=== PATIENT | male | born 1955 | race Caucasian/White ===

== ENCOUNTER 2018-11-09 12:32 | Emergency (ER) | payer OTHER ==
[~2018-11-09] VITALS: Ht 177.8 cm; Wt 77.1 kg
[2018-11-09 12:37] VITALS: BP 119/74
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
[2018-11-09] MEDS ORDERED: VOLTAREN100 G1 TP (13:01)
[2018-11-09] MEDS ORDERED: ZITHROMAX250 MG ORAL (13:01)
[2018-11-09] MEDS ORDERED: TESSALON PERLE100 MG ORAL (13:01)
[2018-11-09 13:12] VITALS: BP 119/74
== END 2018-11-09 13:00 | disposition home or self-care (01) ==
LOC: EMR 12:49
DX: J02.0 Streptococcal pharyngitis (principal); M25.512 Pain in left shoulder; G89.29 Other chronic pain; M25.542 Pain in joints of left hand; F17.200 Nicotine dependence, unspecified, uncomplicated
CPT/HCPCS: 99282

== ENCOUNTER 2019-11-27 14:41 | Emergency (ER) | payer MEDICAID, OTHER ==
[~2019-11-27] VITALS: Ht 177.8 cm; Wt 70.3 kg
[~2019-11-27 14:41] MED LIST: TESSALON PERLE100 MG ORAL; VOLTAREN100 G1 TP; ZITHROMAX250 MG ORAL
[2019-11-27 14:59] VITALS: BP 114/76
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
[2019-11-27] MEDS ORDERED: TYLENOL EXTRA500 MG ORAL (17:23)
[2019-11-27] MEDS ORDERED: AMOX TR-K CLV1 EAC2 ORAL (17:23)
[2019-11-27 17:27] VITALS: BP 114/76
--- NOTE | 2019-11-27 17:28 | NUR ---
ED Nurse Note: Pt cleared by health care Provider for discharge. DC instructions/prescription was given and explained to pt and verbalized understanding of teachings. All medical deviecs such as ID band removed. Pt is AAO x4, ambulatory and left with all personal belongings.
== END 2019-11-27 17:28 | disposition home or self-care (01) ==
LOC: EMR 15:41
DX: J35.1 Hypertrophy of tonsils (principal); R07.0 Pain in throat; J35.8 Other chronic diseases of tonsils and adenoids
CPT/HCPCS: 70490; Z7502; 99284